=== PATIENT | male | born 1985 | race Caucasian/White ===

== ENCOUNTER 2020-08-01 11:28 | Emergency (ER) | payer OTHER, SELFPAY ==
[2020-08-01 11:32] VITALS: BP 132/75; PULSE 105; RESP 16; TEMP 36.7; O2SAT 99
--- NOTE | 2020-08-01 12:04 | ED.UPPEXIN ---
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 Patient states his immunizations are UTD, and he cut his finger about a half a month ago while deer hunting. He complains of mild pain and swelling at the extensor aspect of the DIPJ-- near the site of the shorter [1 cm], transverse injury. Symptoms are mild, worse with activity, has resulted in slight mallet effect, and associated with discharge if he squeezes it. Discharge is now watery, after having been more purulent earlier in the month. No fever, direct trauma, spontaneous discharge, redness. Discussed plan to provide antibiotics and needle aspiration using a transverse [not perpendicular approach avoiding the joint], Related Data Allergies Allergy/AdvReac Type Severity Reaction Status Date / Time No Known Allergies Allergy Unverified 06/25/20 12:04 Review of Systems Review of Systems: Narrative: General/Constitutional: No weight loss,fever Eyes: N0: Redness,discharge Ears/Nose/Throat: No: Epistaxis,ear discharge Respiratory: Denies: Hemoptysis Gastrointestinal: No Vomiting, Bleeding-rectal Skin: No Lumps, eruption Neurologic: No Focal Weakness,Sz Hematologic: Denies: Petechiae/Purpura Psychiatric: No: Suicida ideationl All Other Systems: Reviewed and Negative PMFSH Comments At time of signature, agree with nursing past medical, surgical, social and family history. There is no relevant family history pertinent to the presenting complaint Exam Narrative: Exam Narrative: General Appearance: Well appearing,, Conjunctiva clear Ears: External ear normal, Auditory canal normal Nose: Normal nose, Nares clear Mouth/Throat: Normal appearing, Normal lips Supple Respiratory: Airway patent, No respiratory distress MS-finger: Normal strength (mostly intact, limited flexion/extension by pain), Tenderness (extensor at DIPJ, with mild decreased ROM), Swelling -at the DIPJ, Other no anterior drawer, no collateral laxity, Skin: Warm, Dry, Normal color Neurological: A&O x3, , Normal affect Course Vital Signs Vital signs: Vital Signs Temperature 98.1 F 08/01/20 11:32 Pulse Rate 105 H 08/01/20 11:32 Respiratory Rate 16 08/01/20 11:32 Blood Pressure 132/75 08/01/20 11:32 Pulse Oximetry 99 08/01/20 11:32 Temperature 98.1 F 08/01/20 11:32 Pulse Rate 105 H 08/01/20 11:32 Respiratory Rate 16 08/01/20 11:32 Blood Pressure 132/75 08/01/20 11:32 Pulse Oximetry 99 08/01/20 11:32 Procedures Abscess I/D hand: Side (if applicable): left (index finger, extensor DIP crease) Sedation/analgesia: none Local Anesthetic: none Technique: needle aspiration Amount of fluid expressed (mL): 0.25 Irrigation: No Packing used?: none I&D Results: Blood Discharge Plan Discharge Clinical Impression: Infected finger laceration Qualifiers: Encounter type: initial encounter Qualified Code(s): S61.219A - Laceration without foreign body of unspecified finger without damage to nail, initial encounter Patient Disposition: Home, Self-Care Condition: Stable Instructions: Antibiotic Form, Wound Infection (ED) Additional Instructions: See hand surgery, like [facility] if not improved Prescriptions: New sulfamethoxazole-trimethoprim [Bactrim DS] 800-160 mg tablet 1 tablet PO Q12H Qty: 14 RF: 0 cephalexin 500 mg capsule 500 mg PO Q12H Qty: 14 RF: 0 Follow-up/Referrals: PHYSICIAN,REMARKETING MANAGER [Primary Care Provider] -
== END 2020-08-01 12:10 | disposition home or self-care (01) ==
PROVIDERS: Emergency Provider Emergency Medicine
DX: L08.9 Local infection of the skin and subcutaneous tissue, unspecified (principal); S61.211A Laceration without foreign body of left index finger without damage to nail, initial encounter; W45.8XXA Other foreign body or object entering through skin, initial encounter
CPT/HCPCS: 10160; 99213; G0463

== ENCOUNTER 2022-01-24 01:59 | Emergency (ER) | payer OTHER, SELFPAY ==
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
[2022-01-24 02:05] VITALS: BP 129/84; PULSE 99; RESP 16; TEMP 36.4; O2SAT 99
--- NOTE | 2022-01-24 02:30 | ECG_ITS ---
Measurements Intervals [place] Rate: 84 P: 63 TN: 152 QRS: 81 QRSD: 101 T: 51 QT: 347 QTc: 410 Interpretive Statements SINUS RHYTHM MINIMAL Q WAVES- ANTEROLAT/INF LEADS BORDERLINE ECG Electronically Signed On 01-24-2022 6:58:23 CDT by Mikel Cloud D.O.
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
[2022-01-24 02:48] LABS: Basophils Absolute Auto 0.07 K/mm3 (0.00-0.10); Basophils Percent Auto 0.6 % (0.0-1.0); Eosinophils Absolute Auto 0.22 K/mm3 (0.02-0.50); Eosinophils Percent Auto 1.8 % (1.0-6.0); Hematocrit 36.4 % (40.0-54.0); Immature Granulocyte Absolute 0.04 K/mm3 (0.00-0.00); Immature Granulocyte Percent A 0.3 % (0.0-0.0); Lymphocytes Absolute Auto 2.78 K/mm3 (1.10-4.50); Mean Corpuscular Hemoglobin 31.3 pg (27.0-31.0); Mean Platelet Volume 9.4 fl (8.7-11.0); Monocytes Absolute Auto 0.99 K/mm3 (0.10-0.90); Monocytes Percent Auto 8.2 % (2.0-11.0); Neutrophils Percent Auto 66.1 % (50.0-70.0); Platelet Count Result 263 K/mm3 (150-420); Red Blood Count 3.83 M/mm3 (4.70-6.10); Red Cell Distribution Width 13.2 % (11.6-14.4); White Blood Count 12.1 K/mm3 (4.8-10.8)
[2022-01-24 03:07] LABS: Alanine Aminotransferase 17 U/L (16-63); Albumin Level 3.5 g/dL (3.4-5.0); Alkaline Phosphatase 44 U/L (46-116); Anion Gap 7 mmol/L (8-16); Aspartate Amino Transferase 16 U/L (15-37); Bilirubin,Total 0.2 mg/dL (0.00-1.00); Blood Urea Nitrogen 18 mg/dL (7-18); Calcium 8.8 mg/dL (8.5-10.1); Carbon Dioxide 33 mmol/L (21-32); Chloride 102 mmol/L (98-108); Estimated Glomerular Filt Rate > 60; Ethanol 3 mg/dL (0-6); Glucose 116 mg/dL (70-99); Lactic Acid Reflex 1.6 mmol/L (0.4-2.0); Osmolality Calculated 296 mOsm/kg (285-295); Potassium 3.5 mmol/L (3.5-5.1); Sodium 142 mmol/L (136-145); Total Protein 6.6 g/dL (6.4-8.2); Troponin I 4.6 ng/L (0.00-60.4)
[2022-01-24 03:09] LABS: Lipase 60 U/L (73-393)
[2022-01-24] MEDS: SODIUM CHLORIDE 0.9% IV 1,000 ML 999 ML IV CONT (03:20)
[2022-01-24] MEDS: KETOROLAC (*BKC) 60 MG/2 ML VIAL IM (03:20)
[2022-01-24 03:22] VITALS: O2SAT 99
[2022-01-24 04:15] LABS: Appearance Urine Clear (Clear); Bilirubin Urine Negative (Negative); Blood Urine Negative (Negative); Color Urine Dark Yellow (Yellow); Glucose Urine UA Negative (Negative); Ketones Urine Negative (Negative); Leukocyte Esterase Ur Negative (Negative); Nitrate Urine Negative (Negative); Protein Urine Negative (Negative); Specific Grav Ur >= 1.030 (1.010-1.020); Urobilinogen Urine 0.2 mg/dL (0.2-1.0)
[2022-01-24 04:18] LABS: Add Urine Microscopic? NO
[2022-01-24 04:22] LABS: Amphetamine Screen Urine Positive (Negative); Barbiturate Screen Urine Negative (Negative); Benzodiazepines Screen Urine Negative (Negative); Cannabinoid Screen Urine Positive (Negative); Cocaine Screen Urine Negative (Negative); Methadone Screen Urine Negative (Negative); Opiate Screen Urine Negative (Negative); Phencyclidine Screen Urine Negative (Negative)
== END 2022-01-24 04:34 | disposition left against medical advice (07) ==
PROVIDERS: Emergency Provider Emergency Medicine
DX: S12.401A Unspecified nondisplaced fracture of fifth cervical vertebra, initial encounter for closed fracture (principal); V89.2XXA Person injured in unspecified motor-vehicle accident, traffic, initial encounter
CPT/HCPCS: 36415; 70450; 72125; 72128; 72131; 72192; 80053; 80307; 81003; 83605; 83690; 84484; 85025; 93005; 96360; 96361; 96372; 99284; J1885; J7030; L0150

== ENCOUNTER 2022-02-06 19:40 | Emergency (ER) | payer OTHER, SELFPAY ==
[2022-02-06 20:00] VITALS: BP 128/79; PULSE 95; RESP 16; TEMP 36.7; O2SAT 94
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
[2022-02-06 20:13] LABS: Basophils Percent Auto 0.7 % (0.0-1.0); Eosinophils Absolute Auto 0.17 K/mm3 (0.02-0.50); Eosinophils Percent Auto 1.2 % (1.0-6.0); Hematocrit 37.1 % (40.0-54.0); Hemoglobin 12.3 g/dL (14.0-18.0); Immature Granulocyte Absolute 0.06 K/mm3 (0.00-0.00); Immature Granulocyte Percent A 0.4 % (0.0-0.0); Lymphocytes Percent Auto 16.3 % (18.0-42.0); Mean Corpuscular HGB Conc 33.2 g/dL (32.0-36.0); Mean Corpuscular Hemoglobin 31.1 pg (27.0-31.0); Mean Corpuscular Volume 93.9 fL (78.0-102.0); Mean Platelet Volume 9.1 fl (8.7-11.0); Monocytes Absolute Auto 0.63 K/mm3 (0.10-0.90); Monocytes Percent Auto 4.3 % (2.0-11.0); Neutrophils Absolute Auto 11.4 K/mm3 (1.7-7.2); Neutrophils Percent Auto 77.1 % (50.0-70.0); Platelet Count Result 369 K/mm3 (150-420); Red Blood Count 3.95 M/mm3 (4.70-6.10); Red Cell Distribution Width 12.9 % (11.6-14.4); White Blood Count 14.8 K/mm3 (4.8-10.8)
[2022-02-06] MEDS: cefTRIAXone 1 GM VIAL IM (20:15)
[2022-02-06] MEDS: IBUPROFEN 400 MG TABLET 800 MG PO (20:15)
[2022-02-06] MEDS: TETANUS,DIPHTHERIA,AC PERTUSSIS ADULT 0.5 ML (ADACEL) IM (20:16)
--- NOTE | 2022-02-06 20:43 | PC.NURSE ---
wounds cleaned and dressing applied
== END 2022-02-06 20:49 | disposition home or self-care (01) ==
PROVIDERS: Emergency Provider Emergency Medicine
DX: L03.90 Cellulitis, unspecified (principal)
CPT/HCPCS: 36415; 85025; 90471; 90715; 96372; 99283; A9270; J0696

== ENCOUNTER 2023-04-28 17:23 | Emergency (ER) | payer OTHER, SELFPAY ==
[2023-04-28 17:25] VITALS: BP 129/84; PULSE 80; RESP 16; TEMP 36.6; O2SAT 100
[2023-04-28 17:55] LABS: Basophils Absolute Auto 0.1 K/mm3 (0.0-0.1); Basophils Percent Auto 0.7 % (0.2-1.2); Eosinophils Absolute Auto 0.1 K/mm3 (0-0.3); Eosinophils Percent Auto 1.4 % (0-4.4); Hematocrit 37.5 % (42.0-52.0); Hemoglobin 12.9 g/dL (14.0-18.0); Immature Granulocyte Absolute 0.04 K/mm3 (0.00-0.031); Immature Granulocyte Percent A 0.4 % (0-0.5); Lymphocytes Absolute Auto 2.42 K/mm3 (0.9-3.2); Lymphocytes Percent Auto 23.8 % (18.3-44.2); Mean Corpuscular HGB Conc 34.4 g/dl (32-36); Mean Corpuscular Hemoglobin 31.4 pg (26-34); Mean Corpuscular Volume 91.2 fl (80-100); Mean Platelet Volume 9.9 fl (7.4-10.4); Monocytes Absolute Auto 0.5 K/mm3 (0.1-0.6); Monocytes Percent Auto 5.3 % (2.6-8.5); Neutrophils Percent Auto 68.4 % (45.5-73.1); Platelet Count Result 281 k/mm3 (150-375); Red Blood Count 4.11 M/mm3 (4.6-6.20); Red Cell Distribution Width 13.7 % (11.5-14.5); White Blood Count 10.2 K/mm3 (4.5-10.0)
[2023-04-28 18:04] LABS: Acetaminophen < 10 ug/mL (10-30); Appearance Urine Clear (Clear); Bacteria Urine None Seen /hpf; Bilirubin Urine Negative (Negative); Blood Urine Negative (Negative); Color Urine Dark Yellow (Yellow); Glucose Urine UA Negative (Negative); Ketones Urine Negative (Negative); Leukocyte Esterase Ur Negative LEU/UL (Negative); Nitrate Urine Negative (Negative); Non Pathogenic Casts 0-2; Protein Urine Trace mg/dL (Negative); Specific Grav Ur 1.027 (1.001-1.035); Squamous Epithelial Cell Urine None seen /hpf (Few); Urobilinogen Urine 0.2 mg/dL (<2.0); WBC Urine 0-5 /hpf; pH Urine 5.5 (5.0-9.0)
[2023-04-28 18:05] LABS: Alanine Aminotransferase 33 U/L (6-50); Albumin Level 4.3 g/dL (3.5-5.1); Alkaline Phosphatase 38 U/L (38-126); Anion Gap 4 mmol/L (8-16); Aspartate Amino Transferase 34 U/L (17-59); Bilirubin,Total 0.6 mg/dL (0.2-1.3); Blood Urea Nitrogen 16 mg/dL (9-20); Carbon Dioxide 28 mmol/L (22-30); Chloride 102 mmol/L (98-107); Estimated CRCL calculation 116 ml/min; Estimated Glomerular Filt Rate > 60; Glucose 97 mg/dL (65-110); Potassium 3.6 mmol/L (3.4-5.0); Sodium 134 mmol/L (137-145)
[2023-04-28 18:06] LABS: Ethanol < 10 mg/dL (<10); Salicylate < 1.0 mg/dL (2-20)
[2023-04-28 18:10] LABS: Add Urine Microscopic? YES
[2023-04-28 18:11] LABS: Barbiturate Screen Urine Negative (Negative); Benzodiazepines Screen Urine Negative (Negative)
[2023-04-28 18:31] LABS: Influenza A QL RT-PCR Negative (Negative); Influenza B QL RT-PCR Negative (Negative); SARS-CoV-2 RNA PCR Negative (Negative)
[2023-04-28 18:31] LABS: Cannabinoid Screen Urine Positive (Negative); Cocaine Screen Urine Negative (Negative); Methadone Screen Urine Negative (Negative); Opiate Screen Urine Negative (Negative); Phencyclidine Screen Urine Negative (Negative)
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
[2023-04-28 18:57] LABS: Amphetamine Screen Urine Positive (Negative)
--- NOTE | 2023-04-28 19:22 | PC.NURSE ---
Patient report received from Cat RN. All questions answered and care of patient assumed.
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
--- NOTE | 2023-04-28 20:56 | PC.NURSE ---
Patient report given to ALFREDO Gan. All questions answered and care of patient transferred.
[2023-04-28 21:14] VITALS: BP 98/48; PULSE 75; RESP 15; TEMP 36.6; O2SAT 97
[2023-04-28] MEDS: OFLOXACIN 0.3% OPHTH SOLN 5 ML BTL 5 DROP RIGHT EAR (22:51)
== END 2023-04-28 23:43 ==
PROVIDERS: Emergency Medicine; Emergency Provider Physician Assistant
DX: S09.21XA Traumatic rupture of right ear drum, initial encounter (principal); F32.A Depression, unspecified; Z20.822 Contact with and (suspected) exposure to COVID-19
CPT/HCPCS: 36415; 80053; 80307; 81001; 84443; 85025; 87636; 99285; A9270

== ENCOUNTER 2023-11-23 17:05 | Emergency (ER) | payer OTHER, SELFPAY ==
[2023-11-23] VITALS (22 sets, daily range): BP systolic 111–141; BP diastolic 55–92; PULSE 74–103; RESP 10–23; TEMP 37.1; O2SAT 96–100
--- NOTE | ~2023-11-23 | XR_ITS ---
XR chest 1V portable 11/23/2023 17:57 Indication: Chest pain and shortness of breath Procedure: AP portable chest Comparison: Comparison to multiple prior studies sequentially, with oldest reviewed study dated 05/2010. Findings: Heart size normal. No focal air space disease, pulmonary edema, pleural effusion or suspect ed pneumothorax. There are Morrison rods present. Impression: 1: No acute cardiopulmonary disease. Reviewed, dictated and finalized at location A. Impression: 1: No acute cardiopulmonary disease.
--- NOTE | 2023-11-23 17:10 | ECG_ITS ---
Measurements Intervals [place] Rate: 97 P: 67 PA: 134 QRS: 70 QRSD: 93 T: 0 QT: 330 QTc: 420 Interpretive Statements SINUS RHYTHM MINIMAL Q WAVES- INFERIOR LEADS BASELINE WANDER- I, AVR, AVL, AVF, V4-V6 BORDERLINE ECG COMPARED TO ECG 01/24/2022 03:17:13 NO SIGNIFICANT CHANGES Electronically Signed On 11-23-2023 19:53:49 CDT by Mikel Cloud D.O.
[2023-11-23 17:38] LABS: Basophils Absolute Auto 0.07 K/mm3 (0.00-0.10); Basophils Percent Auto 0.4 % (0.0-1.0); Eosinophils Absolute Auto 0.17 K/mm3 (0.02-0.50); Hematocrit 39.5 % (40.0-54.0); Hemoglobin 13.2 g/dL (14.0-18.0); Immature Granulocyte Absolute 0.07 K/mm3 (0.00-0.00); Immature Granulocyte Percent A 0.4 % (0.0-0.0); Lymphocytes Percent Auto 16.5 % (18.0-42.0); Mean Corpuscular HGB Conc 33.4 g/dL (32-36); Mean Corpuscular Hemoglobin 30.3 pg (27.0-31.0); Mean Corpuscular Volume 90.8 fL (78.0-102.0); Mean Platelet Volume 9.4 fl (8.7-11.0); Monocytes Absolute Auto 1.16 K/mm3 (0.10-0.90); Monocytes Percent Auto 6.6 % (2.0-11.0); Neutrophils Absolute Auto 13.19 K/mm3 (1.70-7.20); Neutrophils Percent Auto 75.1 % (50.0-70.0); Platelet Count Result 368 K/mm3 (150-420); Red Blood Count 4.35 M/mm3 (4.70-6.10); Red Cell Distribution Width 13.4 % (11.6-14.4); White Blood Count 17.6 K/mm3 (4.8-10.8)
[2023-11-23 17:43] LABS: Appearance Urine Sl Cloudy (Clear); Bilirubin Urine Negative (Negative); Blood Urine Negative (Negative); Color Urine Light Yellow (Yellow); Glucose Urine UA Negative (Negative); Ketones Urine Negative (Negative); Leukocyte Esterase Ur Negative LEU/UL (Negative); Nitrate Urine Negative (Negative); Protein Urine Negative (Negative)
[2023-11-23 17:46] LABS: Add Urine Microscopic? NO
[2023-11-23 17:53] LABS: D Dimer 0.32 mg/L (0.19-0.50); INR 0.9; Partial Thromboplastin Time 29.6 Sec (23.9-30.70); Prothrombin Time 9.8 Seconds (9.50-12.1)
[2023-11-23 18:03] LABS: Alanine Aminotransferase 23 U/L (16-63); Albumin Level 3.4 g/dL (3.4-5.0); Alkaline Phosphatase 52 U/L (46-116); Anion Gap 9 mmol/L (8-16); Aspartate Amino Transferase 18 U/L (15-37); Bilirubin,Total 0.2 mg/dL (0.00-1.00); Blood Urea Nitrogen 13 mg/dL (7-18); Calcium 8.4 mg/dL (8.5-10.1); Carbon Dioxide 29 mmol/L (21-32); Chloride 103 mmol/L (98-108); Estimated CRCL calculation 122 ml/min; Estimated Glomerular Filt Rate > 60; Glucose 124 mg/dL (70-99); Lipase 28 U/L (16-77); NT Pro B Type Natriuretic Pept 67 pg/mL (0-125); Osmolality Calculated 293 mOsm/kg (285-295); Potassium 4.1 mmol/L (3.5-5.1); Sodium 141 mmol/L (136-145)
[2023-11-23] MEDS: MAG HYDROX/ALUMINUM HYD/SIMETH 30 ML, PHENobarb/HYOSCY/ATROPINE/SCOP 32.4 MG, LIDOCAINE... PO (18:06)
[2023-11-23] MEDS: SODIUM CHLORIDE 0.9% IV 1,000 ML 999 ML IV CONT (18:12)
[2023-11-23] MEDS: KETOROLAC 30 MG/ML VIAL (*BKC) IV PUSH (18:13)
[2023-11-23 18:14] LABS: SARS-CoV-2 RNA PCR Negative (Negative)
[2023-11-23 18:27] LABS: Influenza A QL RT-PCR Negative (Negative); Influenza B QL RT-PCR Negative (Negative); RSV RNA, RT-PCR Negative (Negative)
--- NOTE | 2023-11-23 20:09 | ED.CHESTPAIN ---
HPI - Chest Pain General Chief Complaint: Chest Pain Stated Complaint: chest pain Time Seen by Provider: 11/23/23 17:09 Source: patient and family Mode of arrival: ambulatory Limitations: no limitations History of Present Illness HPI narrative: this is a 37-year-old male who presents a 2 day history of chest pain left-sided chest no radiation patient states that he did become diaphoretic is a smoker no history of heart disease or CAD in his family no personal history of heart disease there is no nausea or vomiting no shortness of breath patient is afebrile no flank pain no dysuria no hematuria. complaint: chest pain and chest discomfort Onset (ago): day(s) Timing of current episode: episodic Onset: during rest and during exertion Pain location: left chest Pain radiation: none Severity: moderate Quality: aching Related Data Allergies Allergy/AdvReac Type Severity Reaction Status Date / Time No Known Allergies Allergy Verified 11/23/23 17:59 Review of Systems Review of Systems: All systems reviewed & are unremarkable except as noted in HPI and below PMFSH Past Medical History Medical History Cellulitis Head injury Left sided sciatica Neck pain Upper back pain Social History Social History Substance use: current Substance use type: marijuana and amphetamines Exam Const: General: healthy appearing and no acute distress Nutritional Appearance: well nourished Orientation/consciousness: patient oriented x3 Limitations: no limitations HENMT: Head: normal to inspection Eyes: Conjunctivae: conjunctivae normal EOM: EOMs intact bilaterally Direct Ophthalmoscopy: no photophobia Neck: Neck: normal visual inspection Chest: Chest palpation & inspection: normal inspection of the chest Other: Chest discomfort reproducible with palpation and with deep inspiration Resp: Effort & Inspection: normal respiratory effort Auscultation: clear to auscultation bilaterally Cardio: Rate: regular rate Rhythm: regular rhythm GI: GI Palp: Yes Soft to palpation Auscultation: normal bowel sounds : General: Yes bladder normal to palpation Back/Spine/Pelvis: Back: no CVA tenderness Skin: General skin exam: normal color Rashes: no rashes Neuro: General: patient oriented x3, moves all extremities and no meningeal signs Extrem: General: normal to inspection, no clubbing, cyanosis or edema and no pedal edema Psych: Mental Status: mental status grossly normal Affect: normal affect Course Course Emergency Course: patient had a chest x-ray performed which shows no acute pulmonary abnormalities EKG is normal sinus rhythm current vitals are stable with a blood pressure 118/63 pulse of 94 respiratory rate of 18 O2 sats of 99% on room air patient is afebrile. Patient did receive Toradol and states that his pain level has decreased to a 3. Patient has pain is reproducible with palpation. The rest of his blood work and are unremarkable. Troponins are negative x2 Vital Signs Vital signs: Vital Signs Pulse Rate 103 H 11/23/23 17:10 Temperature 37.1 C 11/23/23 17:21 Pulse Rate 88 11/23/23 20:47 Respiratory Rate 20 11/23/23 20:47 Blood Pressure 128/77 11/23/23 20:46 Pulse Oximetry 99 11/23/23 20:47 Oxygen Delivery Room Air 11/23/23 17:45 MDM - Chest Pain Lab Data 11/23/23 17:32 11/23/23 17:32 Labs: Lab Results 11/23/23 11/23/23 11/23/23 Range/Units 17:32 17:40 19:56 WBC 17.6 H (4.8-10.8) K/mm3 RBC 4.35 L (4.70-6.10) M/mm3 Hgb 13.2 L (14.0-18.0) g/dL Hct 39.5 L (40.0-54.0) % MCV 90.8 (78.0-102.0) fL MCH 30.3 (27.0-31.0) pg MCHC 33.4 (32-36) g/dL RDW 13.4 (11.6-14.4) % Plt Count 368 (150-420) K/mm3 MPV 9.4 (8.7-11.0) fl Immature Gran % (Auto) 0.4 H (0.0-0.0) % Neut %
[2023-11-23 20:18] LABS: Troponin I < 4.0 ng/L (0.00-60.4)
== END 2023-11-23 20:50 | disposition home or self-care (01) ==
PROVIDERS: Emergency Provider Emergency Medicine
DX: M94.0 Chondrocostal junction syndrome [Tietze] (principal); Z20.822 Contact with and (suspected) exposure to COVID-19
CPT/HCPCS: 36415; 71045; 80053; 81003; 83690; 83880; 84484; 85025; 85380; 85610; 85730; 87637; 93005; 96361; 96374; 99284; A9270; J1885; J7030

== ENCOUNTER 2024-07-19 00:17 | Emergency (ER) | payer OTHER, SELFPAY ==
--- NOTE | ~2024-07-19 | CT_ITS ---
CT Scan of the Chest without Contrast: Clinical Indication: Trauma Technique: Contiguous sections were acquired throughout the chest without intravenous contrast. Dose reduction technique was used on this scan by utilizing automated exposure control and iterative recon struction technique. The dose-length product (DLP) was 175.95 mGy-cm. Findings: There is no evidence of any significant mediastinal, hilar or axillary lymphadenopathy. The mediastin al soft tissues appear normal. There is no evidence of pleural or pericardial effusion. The lungs are clear. No pulmonary nodules or infiltrates are noted. Images through the upper abdomen reveal no abnormalities. No acute fracture seen. There is extensive thoracic spinal fixation hardware. Impression: No acute abnormalities seen. Reviewed, dictated and finalized at location . AND DIE SUPERVISOR Impression: No acute abnormalities seen.
[2024-07-19 00:17] VITALS: BP 128/81; PULSE 92; RESP 18; TEMP 36.2; O2SAT 100
--- NOTE | 2024-07-19 00:18 | ECG_ITS ---
Test Date: 2024-07-19 00:29:23 Measurements Intervals [place] Rate: 83 P: 67 MD: 148 QRS: 87 QRSD: 95 T: 60 QT: 368 QTc: 433 Interpretive Statements SINUS RHYTHM MINIMAL Q WAVES- INFERIOR LEADS BORDERLINE ECG No previous ECG available for comparison Electronically Signed On 07-19-2024 06:23:59 EXECUTIVE VP by Mikel Cloud D.O.
--- NOTE | 2024-07-19 00:30 | PC.NURSE ---
dr van at the bedside
[2024-07-19 00:35] VITALS: BP 117/75; PULSE 79; RESP 18; O2SAT 98
--- NOTE | 2024-07-19 00:38 | PC.NURSE ---
patient to ct via wheel chair
[2024-07-19 00:52] VITALS: BP 118/76; PULSE 81; RESP 16; O2SAT 99
[2024-07-19] MEDS: SODIUM CHLORIDE 0.9% IV 1,000 ML 999 ML IV CONT (00:55)
[2024-07-19] MEDS: KETOROLAC 30 MG/ML VIAL (*BKC) IV PUSH (00:55)
[2024-07-19 01:00] VITALS: BP 117/75; PULSE 76; RESP 18; O2SAT 98
[2024-07-19 01:15] VITALS: BP 117/78; PULSE 77; RESP 15; O2SAT 99
[2024-07-19 01:15] LABS: Alanine Aminotransferase 21 U/L (16-63); Albumin Level 3.6 g/dL (3.4-5.0); Alkaline Phosphatase 48 U/L (46-116); Anion Gap 9 mmol/L (4-12); Aspartate Amino Transferase 21 U/L (15-37); Bilirubin,Total 0.4 mg/dL (0.00-1.00); Blood Urea Nitrogen 23 mg/dL (7-18); Carbon Dioxide 31 mmol/L (21-32); Chloride 103 mmol/L (98-108); Creatine Kinase 140 U/L (39-308); Estimated CRCL calculation 87 ml/min; Estimated Glomerular Filt Rate > 60; Glucose 103 mg/dL (70-99); Osmolality Calculated 299 mOsm/kg (285-295); Potassium 3.5 mmol/L (3.5-5.1); Sodium 143 mmol/L (136-145); Total Protein 6.9 g/dL (6.4-8.2); Troponin I 4.4 ng/L (0.00-60.4)
--- NOTE | 2024-07-19 01:25 | ED.CHESTPAIN ---
HPI - Chest Pain General Chief Complaint: Chest Pain Stated Complaint: chest wall pain Time Seen by Provider: 07/19/24 00:30 Source: patient and family Limitations: no limitations History of Present Illness HPI narrative: this is a 38-year-old male who presents with a chest injury after cutting a tree and large branch struck the patient in the chest approximately 1 week ago and has been having discomfort since. Was no shortness of breath no nausea vomiting no abdominal pain no other injuries. There is some chest tenderness with palpation and with movement. MD complaint: chest discomfort Onset (ago): week(s) Onset: during rest Related Data Allergies Allergy/AdvReac Type Severity Reaction Status Date / Time No Known Allergies Allergy Verified 11/23/23 17:59 Review of Systems Review of Systems: All systems reviewed & are unremarkable except as noted in HPI and below PMFSH Past Medical History Medical History Cellulitis Head injury Left sided sciatica Neck pain Upper back pain Social History Social History Substance use: current Substance use type: marijuana and amphetamines Exam Const: General: healthy appearing and no acute distress Nutritional Appearance: well nourished Orientation/consciousness: patient oriented x3 Limitations: no limitations Neck: Neck: normal visual inspection, no lymphadenopathy and no meningeal signs Chest: Chest palpation & inspection: tenderness Resp: Effort & Inspection: normal respiratory effort Auscultation: clear to auscultation bilaterally Cardio: Rate: regular rate Rhythm: regular rhythm GI: GI Palp: Yes Soft to palpation Auscultation: normal bowel sounds Course Course Emergency Course: Chest CTA shows no abnormalities acutely. The EKG is normal sinus rhythm patient received a L of fluids and 30mg IV Toradol after reassessment patient's pain level has improved labs performed showed no acute abnormalities. Vital Signs Vital signs: Vital Signs Temperature 36.2 C L 07/19/24 00:17 Pulse Rate 92 07/19/24 00:17 Respiratory Rate 18 07/19/24 00:17 Blood Pressure 128/81 07/19/24 00:17 Pulse Oximetry 100 07/19/24 00:17 Oxygen Delivery Room Air 07/19/24 00:17 Temperature 36.2 C L 07/19/24 00:17 Pulse Rate 81 07/19/24 00:52 Respiratory Rate 16 07/19/24 00:52 Blood Pressure 118/76 07/19/24 00:52 Pulse Oximetry 99 07/19/24 00:52 Oxygen Delivery Room Air 07/19/24 00:52 MDM - Chest Pain Lab Data 07/19/24 00:51 Labs: Lab Results 07/19/24 Range/Units 00:51 Sodium 143 (136-145) mmol/L Potassium 3.5 (3.5-5.1) mmol/L Chloride 103 (98-108) mmol/L Carbon Dioxide 31 (21-32) mmol/L Anion Gap 9 (4-12) mmol/L BUN 23 H (7-18) mg/dL Creatinine 0.94 (0.70-1.30) mg/dL Estim Creat Clear Calc 87 ml/min Estimated GFR > 60 (59 - ) Glucose 103 H (70-99) mg/dL Calculated Osmolality 299 H (285-295) mOsm/kg Calcium 9.0 (8.5-10.1) mg/dL Total Bilirubin 0.4 (0.00-1.00) mg/dL AST 21 (15-37) U/L ALT 21 (16-63) U/L Alkaline Phosphatase 48 (46-116) U/L Total Creatine Kinase 140 (39-308) U/L Troponin I 4.4 (0.00-60.4) ng/L Total Protein 6.9 (6.4-8.2) g/dL Albumin 3.6 (3.4-5.0) g/dL Critical Care Time Critical Care Time Critical Care Time: No Discharge Plan Discharge Clinical Impression: Chest pain Qualifiers: Chest pain type: unspecified Qualified Code(s): R07.9 - Chest pain, unspecified Chest wall contusion Qualifiers: Encounter type: initial encounter Laterality: unspecified laterality Qualified Code(s): S20.219A - Contusion of unspecified front wall of thorax, initial encounter Patient Disposition: Home, Self-Care Condition: Stable Instructions: Antibiotic Form, Chest Wall Pain (ED) Additional Instructions: advised take medication as prescribed and follow up with primary if symptoms persist or worsen. Prescriptions: New tramadol 50 mg tablet 50 mg PO Q6H PRN (Reason: pain) Qty: 14 0RF Follow-up/Referrals: UNKNOWN,DOCTOR [Primary Care Provider] - Time of Disposition: 01:30
== END 2024-07-19 01:41 | disposition home or self-care (01) ==
PROVIDERS: Emergency Provider Emergency Medicine
DX: S20.219A Contusion of unspecified front wall of thorax, initial encounter (principal); W22.8XXA Striking against or struck by other objects, initial encounter
CPT/HCPCS: 36415; 71250; 80053; 82550; 84484; 93005; 96361; 96374; 99284; J1885; J7030

== ENCOUNTER 2025-04-10 21:26 | Emergency (ER) | payer OTHER, SELFPAY ==
--- NOTE | ~2025-04-10 | XR_ITS ---
XR finger 3rd RT min 2V 04/10/2025 22:07 INDICATION: Lawnmower injury PROCEDURE: 4 views right third finger COMPARISON: No prior studies for comparison. FINDINGS: Fracture, dislocation or subluxation is not identified. The soft tissues appear within norm al limits. No foreign bodies are identified. IMPRESSION: 1: NO ACUTE BONE OR JOINT ABNORMALITY IDENTIFIED. Reviewed, dictated and finalized at location B.
[2025-04-10 21:26] VITALS: BP 127/83; PULSE 77; RESP 18; TEMP 36.9; O2SAT 100
--- OUTSIDE RECORDS SUMMARY | 2025-04-10 21:29 | XMS_ITS | Clinical Summary ---
Author Organization [facility] [address] [facility] Address [address] [place] [address] Care Team Providers Care Fur Scraper Name Role Phone Kristin Gandhi NP Primary Care Provider [phone] Allergies No known active allergies Medications hydrOXYzine (ATARAX) 25 mg tabletIndicatio ns:Anxiety Take 1 tablet (25 mg total) by mouth 2 (two) times a day as needed for itching 90 tablet 4 06/26/2023 Active gabapentin (NEURONTIN) 300 mg capsuleIndicati ons:Anxiety Take 1 capsule (300 mg total) by mouth 3 (three) times a day 90 capsule 1 06/26/2023 Active QUEtiapine (SEROquel) 50 mg tabletIndicatio ns:Anxiety Take 1 tablet (50 mg total) by mouth nightly 90 tablet 1 06/26/2023 Active Active Problems Problem Noted Date Diagnosed Date Anxiety 05/26/2023 Assessment & Plan (06/26/2023 5:04 PM CDT): Stable, currently well-controlled Patient was at visit with him. She states that they are moving into a new house today in [place] in working on things. Continue hydroxyzine 25 mg b.i.d. p.r.n., gabapentin 300 mg t.i.d. and Seroquel 50 mg nightly Assessment & Plan (06/14/2023 4:04 PM CDT): Not well controlled; patient reports he has been having worsening anxiety since starting bupropion; gets worked up and can not calm salt down No history of antidepressant use; previously on Seroquel Patient reports he had some response to therapy and rehab, and included gabapentin and hydroxyzine Continue Seroquel 50 mg nightly; gabapentin 300 mg t.i.d., hydroxyzine 25 mg b.i.d. p.r.n. for anxiety attacks Assessment & Plan (05/26/2023 2:56 PM CDT): Not currently well-controlled Start Wellbutrin 150 mg daily Continue quetiapine 50 mg nightly Stop Hydroxyzine Follow up 1 month History of methamphetamine use 05/26/2023 Assessment & Plan (06/14/2023 4:05 PM CDT): Stable, well controlled; patient reports he continues to remain abstinent from methamphetamine; living with aunt who was in recovery from alcohol use Encouraged patient to engage with peer clinical specialist to continue develop support systems and long-term recovery strategies Assessment & Plan (05/26/2023 2:57 PM CDT): History of meth use, patient currently sober Patient recently admitted himself to rehab; he left on 05/04 Back pain with sciatica 05/26/2023 Assessment & Plan (05/26/2023 2:55 PM CDT): Medrol Dosepak as prescribed Immunizations Immunization Administration Dates Next Due Influenza, Unspecified 06/26/2023(Deferr ed: Patient Refused),06/14/2023(Deferred: Patient Refused),05/12/2023(Deferred: Patient Refused),05/12/2022(Deferred: Patient Refused),05/12/2022(Deferred: Patient Refused),09/11/2021(Deferred: Patient Refused),09/11/2020(Deferred: Patient Refused) Tdap 02/06/2022 Surgical History Surgery Date Site/Laterality Comments BACK SURGERY 09/11/2013 - 09/10/2014 Medical History Medical History Date Comments Fracture 2012 neck from t1-t4 Hypertension Social History Tobacco Use Types Packs/Day Years Used Date Smoking Tobacco: Every Day Cigarettes Tobacco Cessation:Ready to Q uit: Not Asked; Counseling Given: Not Answered Humiliation, Afraid, Rape, and Kick questionnair e Answer Date Recorded Within the last year, have y ou been afraid of your partner or ex-partner? No 06/14/2023 Within the last year, have y ou been humiliated or emotionally abused in other ways by your partner or ex-partner? No Within the last year, have y ou been kicked, hit, slapped, or otherwise physically hurt by your partner or ex-partner? No 06/14/2023 Within the last year, have y ou been raped or forced to have any kind of sexual activity by your partner or ex-partner? No 06/14/2023 Social Connection and Isolat ion Panel [NHANES] Answer Date Recorded In a typical week, how many times do you talk on the phone with family, friends, or neighbors? More than three times a week 06/14/2023 How often do you get togethe r with friends or relatives? More than three times a week 06/14/2023 How often do you attend chur or muslim services? Never 06/14/2023 Do you belong to any clubs o r organizations such as christian groups, unions, fraternal or athletic groups, or school groups? No 06/14/2023 How often do you attend meet ings of the clubs or organizations you belong to? Never 06/14/2023 Are you , , di vorced, , never , or living with a partner? 06/14/2023 AUDIT-C Answer Date Recorded Q1: How often do you have a drink containing alcohol? Never 06/14/2023 Q2: How many drinks containi ng alcohol do you have on a typical day when you are drinking? Patient does not drink Q3: How often do you have si x or more drinks on one occasion? Never 06/14/2023 Overall Financial Resource Strain (CARDIA) Answe r Date Recorded How hard is it for you to pa y for the very basics like food, housing, medical care, and heating? Somewhat hard 06/14/2023 PHQ-2 Answer Date Recorded PHQ-2 Total Score (If total score is 3 or more points, staff should administer the PHQ-9) 0 06/26/2023 [facility] of Occupat ional Health - Occupational Stress Questionnaire Answer Date Recorded Do you feel stress - tense, restless, nervous, or anxious, or unable to sleep at night because your mind is troubled all the time - these days? Very much 06/14/2023 Exercise Vital Sign Answer Date Recorde d On average, how many days pe r week do you engage in moderate to strenuous exercise (like a brisk walk)? 7 days 06/14/2023 On average, how many minutes do you engage in exercise at this level? 60 min 06/14/2023 Hunger Vital Sign Answer Date Recorded Within the past 12 months, y ou worried that your food would run out before you got the money to buy more. Sometimes true Within the past 12 months, t he food you bought just didn't last and you didn't have money to get more. Sometimes true 12/2022 PRAPARE - Transportation Answer Date Re corded In the past 12 months, has l ack of transportation kept you from medical appointments or from getting medications? Yes 12/2022 In the past 12 months, has l ack of transportation kept you from meetings, work, or from getting things needed for daily living? Yes 06/14/2023 Housing Stability Vital Sign Answer Lul e Recorded In the last 12 months, was t here a time when you were not able to pay the mortgage or rent on time? Yes 06/14/2023 In the last 12 months, how many places have you lived? 2 06/14/2023 In the last 12 months, was t here a time when you did not have a steady place to sleep or slept in a intermediate (including now)? No 06/14/2023 Sex and Gender Information Value Date Recorded Sex Assigned at Not on file Legal Sex Male 11:42 AM CDT Gender Identity Not on file Sexual Orientation Not on file Obstetrics History Last Filed Vital Signs Vital Sign Reading Time Taken Comments Blood Pressure 108/72 06/26/2023 4:39 PM CDT Pulse 79 06/26/2023 4:39 PM CDT Temperature 36.9 C (98.5 F) 06/26/2023 4:39 PM CDT Respiratory Rate 16 06/26/2023 4:39 PM CDT Oxygen Saturation 98% 06/26/2023 4:39 PM CDT Inhaled Oxygen Concentration - - Weight 71 kg (156 lb 9.6 oz) 06/26/2023 4:39 PM CDT Height 177.8 cm (5' 10) 06/26/2023 4:39 PM CDT Body Mass Index 22.47 06/26/2023 4:39 PM CDT Plan of Treatment Health Maintenance Due Date Last Done Comments Hepatitis C Screening 1986 Varicella Vaccines (1 of 2 - 13+ 2-dose series) 12/25/1999 Hepatitis B Screening 2004 Pneumococcal vaccine <65 (1 of 2 - PCV) 2005 HPV Vaccines (1 - 3-dose SCD M series) 2013 Regular Well Visit/Exam 18-64 05/26/2024 05/26/2023, 05/26/2023 Depression Screening 06/26/2024 06/26/2023, 06/14/2023, 06/14/2023, Additional history exists Influenza Vaccine (#1) 2025 DTaP/Tdap/Td Vaccine (2 - Td or Tdap) 02/07/2032 02/06/2022 Insurance [facility] CMR [facility] CMR [facility] CMR Care Teams Fur Scraper Relationship Specialty Start Date End Date Kristin Gadnhi NP PCP - General Family Medicine 05/26/23
--- OUTSIDE RECORDS SUMMARY | 2025-04-10 21:29 | XMS_ITS | Continuity of Care Document ---
Author Name Lauren Barr Address [address] [place] [address] Organization Unknown Address [address] [place] [address] Medications No known medications Problems No known problems
--- OUTSIDE RECORDS SUMMARY | 2025-04-10 21:29 | XMS_ITS | Referral Summary ---
Author Organization [facility] [address] [facility] Address [address] [place] [address] Care Team Providers Care Pile Driving Supervisor Name Role Phone Kristin Gandhi NP Primary Care Provider [phone] Allergies No known active allergies Medications hydrOXYzine [...] moving into a new house today in [place] in working on things. Continue hydroxyzine 25 [...] use Encouraged patient to engage with peer access control specialist to continue develop support systems and [...] Refused),09/11/2021(Deferred: Patient Refused),09/11/2020(Deferred: Patient Refused) Tdap 02/06/2022 Social History Tobacco Use Types Packs/Day Years [...] week 06/14/2023 How often do you attend [facility] or methodist services? Never 06/14/2023 Do you belong to any clubs o r organizations such as baptist groups, unions, fraternal or athletic groups, or [...] staff should administer the PHQ-9) 0 06/26/2023 [facility] Occupational Stress Questionnaire Answer [...] place to sleep or slept in a fpc (including now)? No 06/14/2023 Sex and Gender Information Value Date Recorded Sex Assigned at Not on file Legal Sex Male 11:42 AM CDT Gender Identity Not on file Sexual Orientation Not on file Last Filed Vital Signs Vital Sign Reading [...] 06/26/2023 4:39 PM CDT Plan of Treatment Not on file Insurance Care Teams Pile Driving Supervisor Relationship Specialty Start Date End Date Kristin Gandhi NP PCP - General Family Medicine 05/26/23
--- OUTSIDE RECORDS SUMMARY | 2025-04-10 21:29 | XMS_ITS | Encounter Summary ---
Author Organization [facility] Address [address] [place] [id number] Care Team Providers Care Pumping Station Supervisor Name Role Phone Unavailable Primary Care Provider Unavailabl e Encounter Details Date Type Department Care Team (Late st Contact Info) Description 02/16/2019 Abstract SFL CONVERSION [address] [place] [address] , Generic Conversion, Social History Tobacco Use Types Packs/Day Years Used Date Smoking Tobacco: Smoker, Current Status Unknown Sex and Gender Information Value Date Recorded Sex Assigned at Not on file Legal Sex Male 9:42 PM CDT Gender Identity Not on file Sexual Orientation Not on file documented as of this encounter Plan of Treatment Not on file documented as of this encounter Visit Diagnoses Not on filedocumented in this encounter
--- OUTSIDE RECORDS SUMMARY | 2025-04-10 21:29 | XMS_ITS | Continuity of Care Document ---
Author Name Lauren Barr Address [address] [place], [place] [id number] [place] [address] Organization Unknown Address [address] [place] [address] Medications No known medications Problems No known problems
--- OUTSIDE RECORDS SUMMARY | 2025-04-10 21:29 | XMS_ITS | Clinical Summary ---
Author Organization [facility] Address [address] [place] [id number] Care Team Providers Care Multi Operation Forming Machine Setter Name Role Phone Unavailable Primary Care Provider Unavailabl e Social History Tobacco Use Types Packs/Day Years Used Date Smoking Tobacco: Smoker, Current Status Unknown Sex and Gender Information Value Date Recorded Sex Assigned at Not on file Legal Sex Male 9:42 PM CDT Gender Identity Not on file Sexual Orientation Not on file Last Filed Vital Signs Vital Sign Reading Time Taken Comments Blood Pressure 116/64 10/27/2017 2:50 PM DIRECTOR LABOR STANDARDS Pulse 94 10/27/2017 2:50 PM DIRECTOR LABOR STANDARDS Temperature - - Respiratory Rate 16 10/14/2015 8:29 PM DIRECTOR LABOR STANDARDS Oxygen Saturation - - Inhaled Oxygen Concentration - - Weight 68.7 kg (151 lb 8 oz) 10/27/2017 2:50 PM DIRECTOR LABOR STANDARDS Height 175.3 cm (5' 9) 10/13/2017 12:00 AM DIRECTOR LABOR STANDARDS Body Mass Index 22.37 10/13/2017 12:00 AM DIRECTOR LABOR STANDARDS Plan of Treatment Health Maintenance Due Date Last Done Comments Annual Physical 1989 Hepatitis C 2004 DTaP, Tdap and Td Vaccines ( 1 - Tdap) 2005 Hepatitis B Vaccines (1 of 3 - 19+ 3-dose series) 2005 HPV Vaccines (1 - 3-dose SCD M series) 2013 COVID-19 Vaccine (2023-2 5 season) 2024 Meningococcal B Vaccine Aged Out No l onger eligible based on patient's age to complete this topic Meningococcal Vaccine Aged Out No araceli phylicia eligible based on patient's age to complete this topic Pneumococcal Vaccine: Pediat rics (0 to 5 Years) and At-Risk Patients (6 to 49 Years) Aged Out No longer eligible b ased on patient's age to complete this topic RSV Immunizations Under 20 Months Aged Out No longer eligible based on patient's age to complete this topic
--- OUTSIDE RECORDS SUMMARY | 2025-04-10 21:29 | XMS_ITS | Continuity of Care Document ---
Author Organization [facility] Address [address] [facility] [address] [place] [address] Phone Care Team Providers Care Ceramics Technician Name Role Phone Champion OD, Talon Unavailable Unavailable Procedures Procedure Date Remove Foreign Body From Eye Advance Directives Directive Yes / No Effective Date File Name No Information Encounters Encounter Description Practice Location Reason(s) For Visit Diagnoses Date Provider Providers Copied on Encounter [facility], [address], [place], [place], [id number], [place] tel:[phone] [facility] No Information 4-200 8 Champion OD Talon. [address] , [address], [place], [address], [place]. tel:[phone] Family History Family Member Type Diagnosis Age At Onset No Information Payers Payer name Insurance type Covered constitution party ID Authoriza tion(s) No Information Social History Type Description Quantity Date Captured Comments Sex Male Smoking Status No Information Chief Complaint And Reason For Visit No Information Reason For Referral Reason For Referral No Information History Of Present Illness Encounter Date Complaint History Of Prese nt Illness No Information Functional Status Date Functional Assessmen t No Information Instructions Date Instruction Additional Infor mation No Information Assessments Type Assessment Date No Information Patient Care Teams Name Effective Dates (start - stop) Status Members No Information
--- NOTE | 2025-04-10 21:32 | ED.UPPEXIN ---
HPI - Extremity Injury (Upper) General Chief Complaint: Extremity Injury, Upper Stated Complaint: right, 3rd digit injury Time Seen by Provider: 04/10/25 21:32 Source: patient and family Mode of arrival: ambulatory Limitations: no limitations History of Present Illness HPI narrative: PATIENT WAS TRYING TO CLEAN HIS LAWN MORE, GOT INJURED TO THE TIP OF THE RIGHT MIDDLE FINGER BY ROTATING BLADE, PRIOR TO ARRIVAL, NO OTHER INJURIES. Related Data Allergies Allergy/AdvReac Type Severity Reaction Status Date / Time No Known Allergies Allergy Verified 04/10/25 21:48 Review of Systems Review of Systems: All systems reviewed & are unremarkable except as noted in HPI and below PMFSH Past Medical History Medical History Cellulitis Left sided sciatica Upper back pain Neck pain Head injury Social History Social History Substance use: current Substance use type: marijuana and amphetamines Exam Narrative: GENERAL APPEARANCE: WELL-DEVELOPED, WELL-NOURISHED SKIN: NORMAL COLOR MUSCULOSKELETAL: RIGHT MIDDLE FINGER EXAM SHOWED 3 MM LACERATION AT THE TIP OF THE FINGER, OOZING BLOOD NEUROLOGIC: ALERT AND ORIENTED ?3, 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 PRIOR TO DISCHARGE Differential Diagnosis Differential diagnosis: Likely other ( ABOVE) Imaging Data My impression: X-RAY OF THE RIGHT MIDDLE FINGER SHOWED NO ACUTE OSSEOUS ABNORMALITY Critical Care Time Critical Care Time Critical Care Time: No Discharge Plan Discharge Clinical Impression: Finger laceration Patient Disposition: Home Condition: Stable Instructions: Antibiotic Form, Finger Laceration (ED) Additional Instructions: RETURN IF SYMPTOMS ARE WORSENING , CALL HAND SURGEON FOR APPOINTMENT, TAKE TYLENOL , IBUPROFEN NEEDED FOR ACHES AND PAIN, CONTINUE HOME MEDICATIONS. Patient Language: Romanian Prescriptions: New cephalexin 500 mg capsule 500 mg PO Q6H Qty: 28 0RF Follow-up/Referrals: Era Babb MD [Physician] - 04/14/25 Waverly,Kristin [place] [Primary Care Provider] - Stand Alone Forms: Work/School Release IP
--- OUTSIDE RECORDS SUMMARY | 2025-04-10 21:51 | XMS_ITS | Encounter Summary ---
Author Organization [facility] Address [address] [place] [address] Care Team Providers Care Personnel Recruiter Name Role Phone Unavailable Primary Care Provider Unavailabl e Encounter Details Date Type Department Care Team (Late st Contact Info) Description 02/16/2019 Abstract SFL CONVERSION [address] [place] [address] , Generic Conversion, Social History Tobacco Use [...]
--- OUTSIDE RECORDS SUMMARY | 2025-04-10 21:51 | XMS_ITS | Clinical Summary ---
Author Organization [facility] Address [address] [place] [address] Care Team Providers Care Hosiery Repairer Name Role Phone Unavailable Primary Care Provider [...] Comments Blood Pressure 116/64 10/27/2017 2:50 PM WEB PAGE DESIGNER Pulse 94 10/27/2017 2:50 PM WEB PAGE DESIGNER Temperature - - Respiratory Rate 16 10/14/2015 8:29 PM WEB PAGE DESIGNER Oxygen Saturation - - Inhaled Oxygen Concentration - - Weight 68.7 kg (151 lb 8 oz) 10/27/2017 2:50 PM WEB PAGE DESIGNER Height 175.3 cm (5' 9) 10/13/2017 12:00 AM WEB PAGE DESIGNER Body Mass Index 22.37 10/13/2017 12:00 AM WEB PAGE DESIGNER Plan of Treatment Health Maintenance Due Date [...]
--- OUTSIDE RECORDS SUMMARY | 2025-04-10 21:53 | XMS_ITS | Continuity of Care Document ---
Author Organization formerly [facility] Address [address] [facility] [address] [place] [address] Phone Care Team Providers Care Student Finance Specialist Name Role Phone Champion OD, Talon Unavailable Unavailable Procedures Procedure Date Remove Foreign Body From Eye Advance Directives Directive Yes / No Effective Date File Name No Information Encounters Encounter Description Practice Location Reason(s) For Visit Diagnoses Date Provider Providers Copied on Encounter [facility], [address], [place], [place], [id number], [place] tel:[phone] [facility] No Information 4-200 8 Champion OD Talon. [address] , [address], [place], [address], [place]. tel:[phone] Family History Family Member Type Diagnosis Age At Onset No Information Payers Payer name Insurance type Covered alliance party ID Authoriza tion(s) No Information Social [...]
--- OUTSIDE RECORDS SUMMARY | 2025-04-10 21:53 | XMS_ITS | Referral Summary ---
Author Organization [facility] [address] [facility] [address] [facility] Address [address] [place] [address] Care Team Providers Care Skiver Hand Name Role Phone Kristin Gandhi NP Primary Care Provider [phone] Allergies No known active allergies Medications hydrOXYzine [...] moving into a new house today in [place] in working on things. Continue hydroxyzine 25 [...] use Encouraged patient to engage with peer pyridine recovery operator to continue develop support systems and long-term [...] week 06/14/2023 How often do you attend [facility] or rastafari services? Never 06/14/2023 Do you belong to any clubs o r organizations such as christianity groups, unions, fraternal or athletic groups, or [...] staff should administer the PHQ-9) 0 06/26/2023 [facility] - Occupational Stress Questionnaire Answer [...] place to sleep or slept in a nursing home (including now)? No 06/14/2023 Sex and Gender [...] Treatment Not on file Insurance Care Teams Skiver Hand Relationship Specialty Start Date End Date Kristin Gandhi NP PCP - General Family Medicine 05/26/23
--- OUTSIDE RECORDS SUMMARY | 2025-04-10 21:53 | XMS_ITS | Clinical Summary ---
Author Organization [facility] [address] [facility] Address [address] [place] [address] Care Team Providers Care Varnish Finisher Name Role Phone Kristin Gandhi NP Primary Care Provider Allergies No known active allergies Medications hydrOXYzine [...] moving into a new house today in [place] in working on things. Continue hydroxyzine 25 [...] use Encouraged patient to engage with peer storage specialist to continue develop support systems and [...] How often do you attend chur or catholic services? Never 06/14/2023 Do you belong to any clubs o r organizations such as episcopalian groups, unions, fraternal or athletic groups, or [...] staff should administer the PHQ-9) 0 06/26/2023 [facility] ional Health - Occupational Stress [...] place to sleep or slept in a care home (including now)? No 06/14/2023 Sex and [...] - Td or Tdap) 02/07/2032 02/06/2022 Insurance [facility] CMR [facility] CMR [facility] CMR Care Teams Varnish Finisher Relationship Specialty Start Date End Date Kristin Gandhi NP PCP - General Family Medicine 05/26/23
[2025-04-10] MEDS: TETANUS,DIPHTHERIA,AC PERTUSSIS ADULT 0.5 ML (ADACEL) IM (22:02)
[2025-04-10] MEDS: NEOMYCIN/POLYMYXIN/BACITRACIN OINTMENT PACKET 1 PACKET TOPICAL (22:13)
[2025-04-10] MEDS: CEPHALEXIN 500 MG CAPSULE PO (22:13)
== END 2025-04-10 22:24 | disposition home or self-care (01) ==
PROVIDERS: Emergency Provider Emergency Medicine; PCP Nurse Practitioner
DX: S61.212A Laceration without foreign body of right middle finger without damage to nail, initial encounter (principal); W26.8XXA Contact with other sharp object(s), not elsewhere classified, initial encounter; Z23 Encounter for immunization
CPT/HCPCS: 73140; 90471; 90715; 99283; A9270